=== PATIENT | male | born 1945 | race Caucasian/White ===

== ENCOUNTER 2023-09-07 02:34 | Emergency (ER) | payer BC, SELFPAY ==
[2023-09-07] VITALS (14 sets, daily range): BP systolic 134–170; BP diastolic 75–88; PULSE 54–85; RESP 17–18; TEMP 36.5; O2SAT 96–99; BMI 31.7
--- NOTE | 2023-09-07 02:47 | DI.CT.S_ITS ---
PROCEDURE: CT ABDOMEN PELVIS W CON INDICATIONS: MIDEPIGASTRIC ABD PAIN/BURNING TECHNIQUE: After the administration of intravenous contrast, axial sections acquired from the lung bases to the pubic symphysis. Coronal and sagittal reformats were performed. For radiation dose reduction, the following was used: automated exposure control, adjustment of mA and/or kV according to patient size. COMPARISON: [facility], , US ABDOMEN LIMITED, 09/07/2023, 6:13. FINDINGS: Image quality: Diagnostic. Lower Chest: Small lung nodules are present. -2 mm; right major fissure; series 3, image 7. -4 mm; left lower lobe; series 3, image 7; Calcified. -2 mm; left lower lobe; series 3, image 15. There is a small hiatal hernia. Mild concentric thickening of the distal esophagus at the GE junction. ABDOMEN: Liver: No solid mass. Normal size. Question mild periportal edema. Gallbladder: There are multiple gallstones. Question mild gallbladder wall thickening. Biliary ducts: No biliary dilation. Pancreas: No ductal dilation. Spleen: Size is within normal limits. Adrenal Glands: No adrenal nodules. Kidneys and Ureters: No hydronephrosis. No solid mass. No complex renal cystic lesion which requires follow up. Stomach and Bowel: Normal colonic caliber, without significant wall thickening. Diverticulosis. No acute diverticulitis. Moderate to large amount of stool in colon. Normal appendix. Peritoneum: No abnormal intraperitoneal fluid. No free air. Ventral Wall: No significant ventral hernia. Abdominal Nodes: No retroperitoneal or mesenteric adenopathy by size criteria. Vessels: Aorta and inferior vena cava are normal in size. PELVIS: Pelvic Organs: Prostate is enlarged. Bladder: No bladder wall thickening, accounting for underdistention. Pelvic Nodes: No enlarged lymph nodes. Miscellaneous: Small fat containing left inguinal hernia is seen. Bones: No aggressive osseous abnormality. Moderate levoscoliosis with the apex at L3-L4. Moderate to severe spondylitic changes in lumbar spine. IMPRESSION: 1. There is a small hiatal hernia. There mild concentric thickening in the distal esophagus at the GE junction, most likely secondary to gastroesophageal reflux. Consider esophagram or EGD for follow-up. 2. Diverticulosis without diverticulitis. 3. Cholelithiasis. Question mild gallbladder wall thickening. Consider ultrasound or HIDA scan if there is clinical suspicion for acute cholecystitis. 4. Question mild periportal edema. Please correlate with LFTs. 5. Enlargement of prostate. 6. Multiple small lung nodules in the visualized lung bases bilaterally. Recommend chest CT for follow-up evaluation. Please see enclosed follow-up recommendation. No significant discrepancy with the pain coordinator radiology preliminary report. Fleischner Society criteria for SOLID lung nodule followup. Nodule size (mm)Low-risk patientHigh-risk patient?4No follow-up neededFollow-up at 12 mo; if no change, no further follow-up>7-5Nauxxm-yr CT at 12 mo; if no change, no further follow-up needed.Initial follow-up CT at 6-12 mo, then 18-24 mo if no change. >6-8Initial follow-up CT at 6-12 mo, then 18-24 mo if no change. Initial follow-up CT at 3-6 mo, then 9-12 mo and 24 mo if no change. >8Follow-up CT at 3, 9, 24 mo. Or PET and/or biopsy.Same as for low-risk pts. Dictated by: Edin Alaniz M.D. on 09/07/2023 at 8:22 Approved by: Edin Alaniz M.D. on 09/07/2023 at 8:31
--- NOTE | 2023-09-07 02:47 | DI.RAD.S_ITS ---
PROCEDURE: XR CHEST 1V INDICATIONS: MIDEPIGASTRIC ABD PAIN/BURNING TECHNIQUE: One view of the chest was acquired. COMPARISON: None. FINDINGS: Surgical changes and devices: None. Lungs and pleura: Lungs are clear. No pleural effusions or pneumothorax. Mediastinum: Mediastinal contours appear normal. Heart size is normal. Bones and chest wall: No suspicious bony lesions. Overlying soft tissues appear unremarkable. IMPRESSION: No acute cardiopulmonary abnormality is seen. No significant discrepancy with the assistant casino shift manager radiology preliminary report. Dictated by: Edin Alaniz M.D. on 09/07/2023 at 8:33 Approved by: Edin Alaniz M.D. on 09/07/2023 at 8:33
--- NOTE | 2023-09-07 02:48 | EKG_ITS ---
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
--- NOTE | 2023-09-07 02:49 | ED.ABDPAIN ---
HPI - Abdominal Pain <Sandra Hernández MD - Last Filed: 09/08/23 01:06> General Chief Complaint: Abdominal Pain Stated Complaint: abd pain Time Seen by Provider: 09/07/23 02:38 History of Present Illness HPI narrative: 78-year-old male with history of hypertension, hyperlipidemia presents for evaluation of burning midepigastric abdominal pain since approximately midnight. Patient states that he had a rich home made pizza dinner and his brother's house and went to bed early, since he had an overnight flight the night before. He woke up around midnight to use the restroom and noticed his symptoms. He attempted to reposition, take some Tums, and attempt to sleep in a new bed, however his pain persisted and he became concerned, prompting his arrival to the emergency department for evaluation. Denies tobacco use, reports occasional alcohol use, denies history of intra-abdominal surgeries. Related Data Previous Rx's Medication Instructions Recorded hydrocodone 5 mg-acetaminophen 325 1 tab PO Q8H PRN pain #10 tabs 09/07/23 mg tablet ondansetron 4 mg disintegrating 4 mg PO Q6H PRN nausea and 09/07/23 tablet vomiting #10 tabs Allergies Allergy/AdvReac Type Severity Reaction Status Date / Time No Known Drug Allergies Allergy Verified 09/07/23 02:46 Review of Systems <Sandra Hernández MD - Last Filed: 09/08/23 01:06> Review of Systems Narrative: See HPI Patient History <Sandra Hernández MD - Last Filed: 09/08/23 01:06> Social History Smoking Status: Never smoker Exam <Sandra Hernández MD - Last Filed: 09/08/23 01:06> Initial Vital Signs Initial Vital Signs: Vital Signs Pulse Rate 85 09/07/23 02:41 Pulse Oximetry 99 09/07/23 02:41 Const: Awake, alert, no acute distress, nontoxic appearing Cardiac: regular rate, regular rhythm RESP: unlabored, clear bilaterally, no wheezing GI: Soft, minimal midepigastric tenderness to deep palpation without rebound or guarding MSK: Atraumatic, full range of motion, pulses equal Skin: Warm, Dry, intact, no rashes Neuro: AO x3, CN II-XII grossly intact, moves all extremities <Apollo Grant DO - Last Filed: 09/07/23 09:10> Initial Vital Signs Initial Vital Signs: Vital Signs Pulse Rate 85 09/07/23 02:41 Pulse Oximetry 99 09/07/23 02:41 Course <Sandra Hernández MD - Last Filed: 09/08/23 01:06> Orders Ordered: Discontinued Medications Al Hydrox/Mg Hydrox/Simethicone (Mag Hydrox/Alum/Simeth 30 Ml Udc) 30 ml PO NOW ONE Stop: 09/07/23 04:18 Last Admin: 09/07/23 04:25 Dose: 30 ml Documented By: EVAN Glycerin (Glycerin Supp Adult 1 Supp) 1 each KS NOW ONE Stop: 09/07/23 07:21 Last Admin: 09/07/23 08:28 Dose: 1 each Documented By: KELLY Ketorolac Tromethamine (Ketorolac 30 Mg/Ml Vial) 15 mg IV NOW ONE Stop: 09/07/23 06:54 Last Admin: 09/07/23 07:00 Dose: 15 mg Documented By: Lidocaine HCl (Lidocaine Viscous 2% 15 Ml Solution) 15 ml PO NOW ONE Stop: 09/07/23 04:18 Last Admin: 09/07/23 04:25 Dose: 15 ml Documented By: EVAN Morphine Sulfate (Morphine 4 Mg/Ml Inj) 4 mg IV NOW ONE Stop: 09/07/23 02:47 Last Admin: 09/07/23 03:25 Dose: 4 mg Documented By: Ondansetron HCl (Ondansetron 4 Mg/2 Ml Inj) 4 mg IV NOW ONE Stop: 09/07/23 02:47 Last Admin: 09/07/23 03:22 Dose: 4 mg Documented By: Sodium Biphosphate/Sodium Phosphate (Fleets Enema) 1 each KS NOW ONE Stop: 09/07/23 07:21 Last Admin: 09/07/23 07:52 Dose: 1 each Documented By: KELLY Vital Signs Vital signs: Vital Signs - 8 hr 09/07/23 02:41 09/07/23 02:42 09/07/23 02:42 Temperature Pulse Rate 85 85 Respiratory Rate Blood Pressure 165/88 H Pulse Oximetry 99 98 Oxygen Delivery Method 09/07/23 02:47 09/07/23 03:00 09/07/23 03:00 Temperature 97.7 F Pulse Rate 85 64 Respiratory Rate 17 Blood Pressure 165/88 H 141/83 H Pulse Oximetry 98 98 Oxygen Delivery Method Room Air 09/07/23 03:30 09/07/23 03:30 09/07/23 03:59 Temperature Pulse Rate 61 Respiratory Rate Blood Pressure 134/77 145/75 H Pulse Oximetry 98 Oxygen Delivery Method 09/07/23 03:59 09/07/23 04:00 09/07/23 04:00 Temperature Pulse Rate 62 54 L Respiratory Rate Blood Pressure 157/78 H Pulse Oximetry 99 99 Oxygen Delivery Method 09/07/23 04:30 09/07/23 04:31 09/07/23 04:31 Temperature Pulse Rate 54 L 58 L Respiratory Rate Blood Pressure 159/83 H Pulse Oximetry 99 99 Oxygen Delivery Method 09/07/23 05:00 09/07/23 05:00 09/07/23 05:30 Temperature Pulse Rate 63 64 Respiratory Rate Blood Pressure 170/84 H Pulse Oximetry 99 98 Oxygen Delivery Method 09/07/23 08:22 09/07/23 08:22 09/07/23 08:55 Temperature Pulse Rate 83 76 Respiratory Rate Blood Pressure 151/76 H Pulse Oximetry 96 97 Oxygen Delivery Method Room Air Room Air <Apollo Grant, - Last Filed: 09/07/23 09:10> Orders Ordered: Discontinued Medications Al Hydrox/Mg Hydrox/Simethicone (Mag Hydrox/Alum/Simeth 30 Ml Udc) 30 ml PO NOW ONE Stop: 09/07/23 04:18 Last Admin: 09/07/23 04:25 Dose: 30 ml Documented By: KH Glycerin (Glycerin Supp Adult 1 Supp) 1 each KS NOW ONE Stop: 09/07/23 07:21 Last Admin: 09/07/23 08:28 Dose: 1 each Documented By: SPF Ketorolac Tromethamine (Ketorolac 30 Mg/Ml Vial) 15 mg IV NOW ONE Stop: 09/07/23 06:54 Last Admin: 09/07/23 07:00 Dose: 15 mg Documented By: AB Lidocaine HCl (Lidocaine Viscous 2% 15 Ml Solution) 15 ml PO NOW ONE Stop: 09/07/23 04:18 Last Admin: 09/07/23 04:25 Dose: 15 ml Documented By: KH Morphine Sulfate (Morphine 4 Mg/Ml Inj) 4 mg IV NOW ONE Stop: 09/07/23 02:47 Last Admin: 09/07/23 03:25 Dose: 4 mg Documented By: Ondansetron HCl (Ondansetron 4 Mg/2 Ml Inj) 4 mg IV NOW ONE Stop: 09/07/23 02:47 Last Admin: 09/07/23 03:22 Dose: 4 mg Documented By: Sodium Biphosphate/Sodium Phosphate (Fleets Enema) 1 each KS NOW ONE Stop: 09/07/23 07:21 Last Admin: 09/07/23 07:52 Dose: 1 each Documented By: KELLY Vital Signs Vital signs: Vital Signs - 8 hr 09/07/23 02:41 09/07/23 02:42 09/07/23 02:42 Temperature Pulse Rate 85 85 Respiratory Rate Blood Pressure 165/88 H Pulse Oximetry 99 98 Oxygen Delivery Method 09/07/23 02:47 09/07/23 03:00 09/07/23 03:00 Temperature 97.7 F Pulse Rate 85 64 Respiratory Rate 17 Blood Pressure 165/88 H 141/83 H Pulse Oximetry 98 98 Oxygen Delivery Method Room Air 09/07/23 03:30 09/07/23 03:30 09/07/23 03:59 Temperature Pulse Rate 61 Respiratory Rate Blood Pressure 134/77 145/75 H Pulse Oximetry 98 Oxygen Delivery Method 09/07/23 03:59 09/07/23 04:00 09/07/23 04:00 Temperature Pulse Rate 62 54 L Respiratory Rate Blood Pressure 157/78 H Pulse Oximetry 99 99 Oxygen Delivery Method 09/07/23 04:30 09/07/23 04:31 09/07/23 04:31 Temperature Pulse Rate 54 L 58 L Respiratory Rate Blood Pressure 159/83 H Pulse Oximetry 99 99 Oxygen Delivery Method 09/07/23 05:00 09/07/23 05:00 09/07/23 05:30 Temperature Pulse Rate 63 64 Respiratory Rate Blood Pressure 170/84 H Pulse Oximetry 99 98 Oxygen Delivery Method 09/07/23 08:22 09/07/23 08:22 09/07/23 08:55 Temperature Pulse Rate 83 76 Respiratory Rate Blood Pressure 151/76 H Pulse Oximetry 96 97 Oxygen Delivery Method Room Air Room Air MDM - Abdominal Pain <Sandra Hernández MD - Last Filed: 09/08/23 01:06> Lab Data 09/07/23 02:55 09/07/23 02:55 Labs: Lab Results 09/07/23 Range/Units 02:55 WBC 7.1 (4.5-11.0) X10^3/uL RBC 4.94 (4.5-5.9) X10^6/uL Hgb 15.5 (13.5-17.5) g/dL Hct 45.3 (41-53) % MCV 91.6 (80-100) fL MCH 31.4 (26-34) PG MCHC 34.3 (30-36) % RDW 13.2 (11.6-14.8) % Plt Count 149 L (150-400) X10^3/uL Neut % (Auto) 64.5 (50-75) % Lymph % (Auto) 24.0 L (25-40) % Grimes % (Auto) 8.4 (3-14) % Eos % (Auto) 2.3 (2-4) % Baso % (Auto) 0.8 (0-2) % Neut # (Auto) 4600 (0452-8074) /uL Lymph # (Auto) 1700 (2660-2830) /uL Grimes # (Auto) 600 (0-900) /uL Eos # (Auto) 200 (0-450) /uL Baso # (Auto) 100 (0-100) /uL PT 11.4 (9.4-12.5) SECONDS INR 1.0 (0.9-1.3) Sodium 139 (137-145) mmol/L Potassium 4.0 (3.4-5.1) mmol/L Chloride 108 H (98-107) mmol/L Carbon Dioxide 28 (22-32) mmol/L BUN 18 (9-20) mg/dL Creatinine 1.00 (0.66-1.25) mg/dL Estimated GFR > 60 (>60) mL/min BUN/Creatinine Ratio 18.0 (6-22) Glucose 113 H (80-110) mg/dL Lactate 1.1 (0.7-2.1) mmol/L Calcium 9.3 (8.4-10.2) mg/dL Total Bilirubin 0.6 (0.2-1.3) mg/dL AST 26 (17-59) IU/L ALT 25 (<50) IU/L Alkaline Phosphatase 55 (38-126) U/L Total Creatine Kinase 69 (55-170) U/L Troponin I < 0.012 (0.01-0.034) ng/mL Total Protein 7.1 (6.3-8.2) g/dL Albumin 4.3 (3.5-5.0) g/dL Globulin 2.8 (1.7-4.1) g/dL Albumin/Globulin Ratio 1.5 (1.0-2.8) Lipase 297 (23-300) U/L ECG Data Interpretation: Normal sinus rhythm at 65 beats per minute. Normal KS, normal axis, normal intervals, no ST T wave changes MDM Narrative Medical decision making narrative: Midepigastric abdominal pain for multiple hours after eating heavy meal. Abdomen is soft, no distention, minimal tenderness to deep palpation in the midepigastric region. Laboratory work and imaging obtained. Morphine for pain. Laboratory work shows WBC count 7.1, hemoglobin 15.5, platelet count 149, sodium 139, potassium 4.0, creatinine 1, liver enzymes normal, troponin undetectable. Patient reports no significant improvement with morphine, Toradol ordered. CT of the abdomen and pelvis shows gallstones and gallbladder distention without obvious cholecystitis. Since patient has had persistent pain a ultrasound was ordered. Ultrasound shows stones and gallbladder wall thickening, possible early cholecystitis. Case discussed with general surgery Dr. Bailey, who stated that if patient has persistent pain he could be admitted to medical service and placed on the schedule later today. Labs and imaging discussed with the patient as well as General surgery recommendations. Patient stated that he would like to try laxatives to see if he can have a bowel movement and would like to discuss the results of his ER workup with his brother who is a laborer cook house prior to making any decisions. Care of patient is signed over to Dr. Grant at 0700 Dr grant: Received turned over from Dr Hernández. Review patient's history and physical exam and workup up to this point. Patient does have a cholelithiasis without necessarily signs of acute cholecystitis however does have some gallbladder wall thickening. Patient states his pain is much better. He has not vomiting. There was discussion about admission to the hospital for surgical intervention however the patient would like to be discharged home. He understands that if his symptoms worsen that he will need to return to the emergency department. Advised the patient that when he returns home he should contact his primary doctor to discuss a referral to see General surgery. He was given return precautions. He expressed understanding and agreement with plan. <Apollo Grant, DO - Last Filed: 09/07/23 09:10> Lab Data Labs: Lab Results 09/07/23 Range/Units 02:55 WBC 7.1 (4.5-11.0) X10^3/uL RBC 4.94 (4.5-5.9) X10^6/uL Hgb 15.5 (13.5-17.5) g/dL Hct 45.3 (41-53) % MCV 91.6 (80-100) fL MCH 31.4 (26-34) PG MCHC 34.3 (30-36) % RDW 13.2 (11.6-14.8) % Plt Count 149 L (150-400) X10^3/uL Neut % (Auto) 64.5 (50-75) % Lymph % (Auto) 24.0 L (25-40) % [place]imes % (Auto) 8.4 (3-14) % Eos % (Auto) 2.3 (2-4) % Baso % (Auto) 0.8 (0-2) % Neut # (Auto) 4600 (7219-9057) /uL Lymph # (Auto) 1700 (6249-3404) /uL [place] # (Auto) 600 (0-900) /uL Eos # (Auto) 200 (0-450) /uL Baso # (Auto) 100 (0-100) /uL PT 11.4 (9.4-12.5) SECONDS INR 1.0 (0.9-1.3) Sodium 139 (137-145) mmol/L Potassium 4.0 (3.4-5.1) mmol/L Chloride 108 H (98-107) mmol/L Carbon Dioxide 28 (22-32) mmol/L BUN 18 (9-20) mg/dL Creatinine 1.00 (0.66-1.25) mg/dL Estimated GFR > 60 (>60) mL/min BUN/Creatinine Ratio 18.0 (6-22) Glucose 113 H (80-110) mg/dL Lactate 1.1 (0.7-2.1) mmol/L Calcium 9.3 (8.4-10.2) mg/dL Total Bilirubin 0.6 (0.2-1.3) mg/dL AST 26 (17-59) IU/L ALT 25 (<50) IU/L Alkaline Phosphatase 55 (38-126) U/L Total Creatine Kinase 69 (55-170) U/L Troponin I < 0.012 (0.01-0.034) ng/mL Total Protein 7.1 (6.3-8.2) g/dL Albumin 4.3 (3.5-5.0) g/dL Globulin 2.8 (1.7-4.1) g/dL Albumin/Globulin Ratio 1.5 (1.0-2.8) Lipase 297 (23-300) U/L MDM Narrative Medical decision making narrative: Dr grant: Received turned over from Dr Hernández. Review patient's history and physical exam and workup up to this point. Patient does have a cholelithiasis without necessarily signs of acute cholecystitis however does have some gallbladder wall thickening. Patient states his pain is much better. He has not vomiting. There was discussion about admission to the hospital for surgical intervention however the patient would like to be discharged home. He understands that if his symptoms worsen that he will need to return to the emergency department. Advised the patient that when he returns home he should contact his primary doctor to discuss a referral to see General surgery. He was given return precautions. He expressed understanding and agreement with plan. Discharge Plan Departure Patient Disposition: Home Clinical Impression: Cholelithiasis, Abdominal pain Instructions: DI for Gallstones, DI for Abdominal Pain-Adult Activity Restrictions/Additional Instructions: I do recommend a bland diet for the next couple days. If your symptoms return or worsen you do need to be evaluated again. When to return home recommend that you talk with your primary doctor about a referral to see General surgery. Prescriptions: New ondansetron 4 mg tablet,disintegrating 4 mg PO Q6H PRN (Reason: nausea and vomiting) Qty: 10 0RF hydrocodone-acetaminophen 5-325 mg tablet 1 tab PO Q8H PRN (Reason: pain) Qty: 10 0RF Stand Alone Forms: Patient Portal/API
[2023-09-07 03:07] LABS: Add Manual Diff / Slide Review NO; Basophils Absolute Auto 100 /uL (0-100); Basophils Percent Auto 0.8 % (0-2); Eosinophils Absolute Auto 200 /uL (0-450); Eosinophils Percent Auto 2.3 % (2-4); Hematocrit 45.3 % (41-53); Hemoglobin 15.5 g/dL (13.5-17.5); Lymphocytes Absolute Auto 1700 /uL (1100-4500); Mean Corpuscular HGB Conc 34.3 % (30-36); Mean Corpuscular Hemoglobin 31.4 PG (26-34); Mean Corpuscular Volume 91.6 fL (80-100); Monocytes Absolute Auto 600 /uL (0-900); Monocytes Percent Auto 8.4 % (3-14); Neutrophils Absolute Auto 4600 /uL (1500-7000); Neutrophils Percent Auto 64.5 % (50-75); Platelet Count 149 X10^3/uL (150-400); Red Blood Cell Count 4.94 X10^6/uL (4.5-5.9); Red Cell Distribution Width 13.2 % (11.6-14.8); White Blood Cell Count 7.1 X10^3/uL (4.5-11.0)
[2023-09-07 03:12] LABS: Prothrombin Time 11.4 SECONDS (9.4-12.5)
[2023-09-07 03:16] LABS: Lactate (Lactic Acid) 1.1 mmol/L (0.7-2.1)
[2023-09-07 03:17] LABS: Alanine Aminotransferase 25 IU/L (<50); Albumin 4.3 g/dL (3.5-5.0); Albumin Globulin Ratio 1.5 (1.0-2.8); Alkaline Phosphatase 55 U/L (38-126); Aspartate Aminotransferase 26 IU/L (17-59); Bilirubin Total 0.6 mg/dL (0.2-1.3); Blood Urea Nitrogen 18 mg/dL (9-20); Calcium 9.3 mg/dL (8.4-10.2); Carbon Dioxide 28 mmol/L (22-32); Chloride 108 mmol/L (98-107); Creatine Kinase 69 U/L (55-170); Estimated Glomerular Filt Rate > 60 mL/min (>60); Globulin 2.8 g/dL (1.7-4.1); Glucose 113 mg/dL (80-110); HEMOLYSIS < 15 (0-50); Lipase 297 U/L (23-300); Sodium 139 mmol/L (137-145); Total Protein 7.1 g/dL (6.3-8.2)
[2023-09-07] MEDS: ONDANSETRON 4 MG/2 ML INJ IV (03:22)
[2023-09-07] MEDS: MORPHINE 4 MG/ML INJ IV (03:25)
[2023-09-07 03:28] LABS: Troponin I < 0.012 ng/mL (0.01-0.034)
[2023-09-07] MEDS: LIDOCAINE VISCOUS 2% 15 ML SOLUTION PO (04:25)
[2023-09-07] MEDS: MAG HYDROX/ALUM/SIMETH 30 ML UDC PO (04:25)
--- NOTE | 2023-09-07 04:37 | DI.US.S_ITS ---
PROCEDURE: US ABDOMEN LIMITED INDICATIONS: MIDEPIGASTRIC PAIN TECHNIQUE: Real-time scanning was performed of the abdominal and retroperitoneal organs, with image documentation. COMPARISON: [facility], CT, CT ABDOMEN PELVIS W CON, 09/07/2023, 3:45. FINDINGS: Liver: Liver is normal in size and homogeneous in echotexture. Gallbladder: There are gallstones. Gallbladder wall appears thickened measuring 5.9 mm. No pericholecystic edema. Negative sonographic Gaines's sign. Biliary ducts: Intrahepatic bile ducts are non-dilated. Extrahepatic bile duct caliber measures 6.3 mm. Normal is 6-7 mm or less in diameter, or 10 mm or less post-cholecystectomy. Pancreas: Obscured by overlying bowel gas. Miscellaneous: No free abdominal fluid. IMPRESSION: 1. Cholelithiasis. There is gallbladder wall thickening, but no pericholecystic fluid collection or sonographic Gaines sign. If there is clinical suspicion for acute cholecystitis, HIDA scan would be helpful. No significant discrepancy with the lieutenant shift supervisor radiology preliminary report. Dictated by: Edin Alaniz M.D. on 09/07/2023 at 8:33 Approved by: Edin Alaniz M.D. on 09/07/2023 at 8:36
[2023-09-07] MEDS: KETOROLAC 30 MG/ML VIAL 15 MG IV (07:00)
[2023-09-07] MEDS: FLEETS ENEMA 1 EACH PR (07:52)
[2023-09-07] MEDS: GLYCERIN SUPP ADULT 1 SUPP 1 EACH PR (08:28)
== END 2023-09-07 09:47 | disposition home or self-care (01) ==
PROVIDERS: Emergency Medicine; Emergency Provider Emergency Medicine
DX: K80.20 Calculus of gallbladder without cholecystitis without obstruction (principal); R10.13 Epigastric pain
CPT/HCPCS: 36415; 71045; 74177; 76705; 80053; 82550; 83605; 83690; 84484; 85025; 85610; 93005; 96374; 96375; 99284; J1885; J2270; J2405; Q9967